=== PATIENT | female | born 1970 | race Caucasian/White ===

== ENCOUNTER → 2021-12-27 11:59 | Outpatient (BNVA) | payer MEDICAID, SELFPAY | PROVIDERS: Family Provider Family Medicine; PCP Family Medicine; Visit Provider Emergency Medicine | DX: R53.82 Chronic fatigue, unspecified (principal); M79.10 Myalgia, unspecified site; M25.50 Pain in unspecified joint; W57.XXXA Bitten or stung by nonvenomous insect and other nonvenomous arthropods, initial encounter | CPT/HCPCS: 80053; 84443; 85025; 86160; 86162; 86235; 86255; 86376; 86431; 86618; 86666; 86757 ==

== ENCOUNTER → 2021-12-28 11:59 | Outpatient (BNVA) | payer MEDICAID, SELFPAY | PROVIDERS: Family Provider Family Medicine; PCP Family Medicine; Visit Provider Emergency Medicine | DX: R53.82 Chronic fatigue, unspecified (principal); M79.10 Myalgia, unspecified site; M25.50 Pain in unspecified joint; W57.XXXA Bitten or stung by nonvenomous insect and other nonvenomous arthropods, initial encounter; R73.9 Hyperglycemia, unspecified | CPT/HCPCS: 83036 ==

== ENCOUNTER → 2022-02-15 10:27 | Outpatient (BNVA) | payer MEDICAID, SELFPAY | PROVIDERS: Family Provider Family Medicine; PCP Emergency Medicine; Visit Provider Internal Medicine Rheumatology | DX: Z79.899 Other long term (current) drug therapy (principal); M45.6 Ankylosing spondylitis lumbar region; Z11.59 Encounter for screening for other viral diseases; M19.041 Primary osteoarthritis, right hand | CPT/HCPCS: 73130; 73630; 82306; 85651; 86140; 86200; 86480; 86704; 86803; 86812; 87340 ==

== ENCOUNTER → 2023-04-03 17:20 | Outpatient (BNVA) | payer MEDICAID, SELFPAY | PROVIDERS: Family Provider Family Medicine; Visit Provider Nurse Practitioner Family | DX: R53.83 Other fatigue (principal); R53.82 Chronic fatigue, unspecified; R68.89 Other general symptoms and signs; N93.9 Abnormal uterine and vaginal bleeding, unspecified; R10.9 Unspecified abdominal pain; R10.32 Left lower quadrant pain | CPT/HCPCS: 80053; 84439; 84443; 84480; 85025 ==

== ENCOUNTER 2023-04-05 06:21 | Outpatient (CLI) | payer MEDICAID, SELFPAY ==
--- NOTE | 2023-04-05 06:15 | US_ITS ---
WS: [id number] US pelv w/transvag [id number] HISTORY: N93.9 - Abnormal uterine and vaginal bleeding, unspecified COMPARISON: None available. Uterus: 9.4 cm x 6.8 cm x 4.5 cm. Normal size anteverted uterus. No fibroid or mass. Endometrium: 0.2 cm. Thin atrophic endometrium. No mass is identified no increased vascularity. Right ovary: 2.1 cm x 1.6 cm x 2.9 cm. Normal size and vascularity, no cystic or solid masses. Left ovary: 2.2 cm x 1.4 cm x 2.3 cm. Normal size and vascularity, no cystic or solid masses. There i s a large amount of shadowing adjacent to the ovary. Suspect this is GI tract content. No free fluid in the cul-de-sac. IMPRESSION: 1. Thin atrophic endometrium. No endometrial mass. 2. No fibroid. 3. No adnexal masses.
== END 2023-04-05 06:22 | disposition home or self-care (01) ==
LOC: RAD 06:22
PROVIDERS: Family Provider Family Medicine; PCP Family Medicine; Visit Provider Nurse Practitioner Family
DX: N93.9 Abnormal uterine and vaginal bleeding, unspecified (principal)
CPT/HCPCS: 76830; 76856

== ENCOUNTER → 2023-05-22 15:05 | Outpatient (BNVA) | payer MEDICAID, SELFPAY | PROVIDERS: Family Provider Family Medicine; PCP Family Medicine; Visit Provider Nurse Practitioner Women's Health | DX: Z12.4 Encounter for screening for malignant neoplasm of cervix (principal); N95.0 Postmenopausal bleeding | CPT/HCPCS: 82670; 83001; 84146; 87624 ==

== ENCOUNTER → 2023-06-25 10:10 | Outpatient (BNVA) | payer MEDICAID, SELFPAY | PROVIDERS: Family Provider Family Medicine; PCP Family Medicine; Visit Provider Nurse Practitioner Women's Health | DX: N95.0 Postmenopausal bleeding (principal) | CPT/HCPCS: 88305 ==

== ENCOUNTER → 2023-11-06 13:13 | Outpatient (BNVA) | payer MEDICAID, SELFPAY | PROVIDERS: Family Provider Family Medicine; Visit Provider Nurse Practitioner | DX: E11.9 Type 2 diabetes mellitus without complications (principal) | CPT/HCPCS: 80053; 80061; 83036; 84443; 85025 ==